=== PATIENT | female | born 1990 | race Caucasian/White ===

== ENCOUNTER 2020-06-05 03:31 | Inpatient (IN) ==
[2020-06-05] MEDS ORDERED: BUTORPHANOL 2 MG/ML VIAL IV PRN (05:32)
[2020-06-05] MEDS ORDERED: ONDANSETRON 4 MG/2 ML VIAL IV PRN (05:32)
[2020-06-05] MEDS ORDERED: AMPICILLIN INJ 2,000 MG in SODIUM CHLORIDE 0.9% 100 ML IV ONE (05:55)
[2020-06-05] MEDS ORDERED: LACTATED RINGERS 1,000 ML IV SCH ×2 (06:00→07:00)
[2020-06-05 06:28] LABS: Basophils # 0.1 10*3/uL (0.0-0.2); Basophils % 0.2 % (0.0-0.8); Eosinophils # 0.1 10*3/uL (0.0-0.87); Eosinophils % 0.5 % (0.00-10.9); Hematocrit 33.2 VOL% (35.7-47.0); Hemoglobin 10.9 GM/DL (12.0-16.0); Immature Granulocytes % 2.1 %; Immature Granulocytes Absolute 0.46 #; Lymphocytes # 4.1 10*3/uL (1.4-4.0); Lymphocytes % 19.1 % (21.3-54.2); Mean Corpuscular HGB Conc 32.8 GM/DL (32-36); Mean Platelet Volume 10.3 FL (9.6-12.0); Monocytes % 7.4 % (1.7-12.7); NRBC # 0.03 10*3/uL; Neutrophils % 70.7 % (38.7-73.9); Platelet Count 332 T/CUMM (130-400); Red Blood Count 3.61 MC/CUMM (3.8-5.5); White Blood Count 21.5 T/CUMM (4-12)
[2020-06-05] MEDS ORDERED: FAMOTIDINE 20 MG/2 ML VIAL IV ONE ×2 (06:33→15:16)
[2020-06-05] MEDS ORDERED: CITRIC ACID/SODIUM CITRATE 30 ML UDCUP PO ONE (06:33)
[2020-06-05] MEDS ORDERED: LACTATED RINGERS 1,000 ML IV ONE (06:33)
[2020-06-05] MEDS ORDERED: ePHEDrine 50 MG/ML VIAL IV PRN (06:33)
[2020-06-05] MEDS ORDERED: diphenhydrAMINE 50 MG/1 ML VIAL IV PRN (06:33)
[2020-06-05] MEDS ORDERED: NALOXONE 0.4 MG/ML VIAL IV PRN (06:33)
[2020-06-05 06:50] LABS: Alanine Aminotransferase 24 U/L (13-56); Albumin 2.9 G/DL (3.4-5.0); Alkaline Phosphatase 130 U/L (45-117); Aspartate Amino Transferase 19 U/L (0-37); Bilirubin,Total < 0.39 MG/DL (0.2-1.0); Blood Urea Nitrogen 9 MG/DL (7-18); Calcium 8.7 MG/DL (8.5-10.1); Estimated Glom Filtration Rate 136 ML/MIN; Glucose 86 MG/DL (74-106); Osmolality,Calculated 265.2 MOS/KG (273-304); Total Protein 7.1 G/DL (6.4-8.3)
[2020-06-05 07:00] LABS: Band Neutrophils 1 % (0-10); Eosinophils 1 % (0-10); Lymphocytes 22 % (20-55); Platelet Estimate Normal; Segmented Neutrophils 67 % (50-85); Total Cells Counted 100
[2020-06-05 07:01] LABS: Anisocytosis 2+
[2020-06-05] MEDS: OXYTOCIN/LR 20 UNIT/1,000 ML BAG IV SCH (07:36)
[2020-06-05] MEDS: LACTATED RINGERS 1,000 ML IV SCH ×2 (09:33→17:35)
[2020-06-05] MEDS: AMPICILLIN INJ 1,000 MG in SODIUM CHLORIDE 0.9% 100 ML IV SCH ×5 (10:01→22:38)
[2020-06-05] MEDS ORDERED: CITRIC ACID/SODIUM CITRATE 30 ML UDCUP ONE (15:15)
[2020-06-05] MEDS: fentaNYL 2 MCG/ROPIV 0.2% EPID 100 ML EPIDURAL SCH (16:02)
[2020-06-05 19:37] LABS: Apearance,Urine CLEAR (Clear); Bacteria,Urine Occasional /HPF (Few); Bilirubin,Urine Negative (Negative); Blood, Urine Small mg/dL (Negative); Glucose,Urine (UA) Negative (Negative); Ketones,Urine 5 mg/dL (Negative); Nitrite,Urine Negative (Negative); Protein,Urine Negative; RBC,Urine 1 /HPF (0-4); Squamous Epithelial Cell,Urine Occasional /HPF (0-10); Urine Color Yellow (Yellow); Urine Specific Gravity 1.009 (1.001-1.035); Urine Urobilinogen < 2.0 EU/DL (0.2-1.0); WBC,Urine <1 /HPF (0-6)
[2020-06-06] MEDS: fentaNYL 2 MCG/ROPIV 0.2% EPID 100 ML EPIDURAL SCH (00:49)
[2020-06-06] MEDS: AMPICILLIN INJ 1,000 MG in SODIUM CHLORIDE 0.9% 100 ML IV SCH ×2 (02:30→06:03)
[2020-06-06] MEDS: OXYTOCIN/LR 20 UNIT/1,000 ML BAG IV SCH (02:34)
[2020-06-06] MEDS: LACTATED RINGERS 1,000 ML IV SCH (05:00)
[2020-06-06] MEDS ORDERED: miSOPROStoL 200 MCG TABLET ONE (08:03)
[2020-06-06] MEDS ORDERED: OXYTOCIN/LR 20 UNIT/1,000 ML BAG IV ONE ×2 (08:04→10:06)
[2020-06-06] MEDS ORDERED: TRANEXAMIC ACID 1,000 MG/10 ML VIAL ONE (08:04)
[2020-06-06] MEDS ORDERED: METHYLERGONOVINE 0.2 MG/1 ML AMP ONE (08:05)
[2020-06-06] MEDS ORDERED: CARBOPROST TROMETHAMINE 250 MCG/ML AMP IM ONE (08:05)
[2020-06-06 09:41] LABS: Cord Venous Blood HCO3 21.7 MMOL/L; Cord Venous Blood PCO2 39.1 MMHG; Cord Venous Blood PO2 26.1 MMHG
[2020-06-06] MEDS ORDERED: ONDANSETRON 4 MG/2 ML VIAL IV PRN (10:06)
[2020-06-06] MEDS ORDERED: DIPH/TET/ACEL PERT BOOSTER VACCINE 0.5 ML VIAL IM ONE (10:06)
[2020-06-06] MEDS ORDERED: MEASLES/MUMPS/RUBELLA VACCINE 0.5 ML VIAL SUBCUT ONE (10:06)
[2020-06-06] MEDS ORDERED: HYDROCORTISONE 2.5% RECTAL CREAM 30 GM TUBE TOP PRN (10:06)
[2020-06-06] MEDS ORDERED: BISACODYL 10 MG SUPP RECTAL PRN (10:06)
[2020-06-06] MEDS ORDERED: oxyCODONE/ACETAMINOPHEN 5-325 MG TABLET PO PRN ×2 (10:06)
[2020-06-06] MEDS ORDERED: BENZOCAINE 20%/MENTHOL 0.5% SPRAY 56 GM CAN TOP PRN (10:06)
[2020-06-06] MEDS ORDERED: LANOLIN 50% CREAM 0.3 OZ TUBE TOP PRN (10:06)
[2020-06-06] MEDS ORDERED: WITCH HAZEL PADS 100/JAR TOP PRN (10:06)
[2020-06-06] MEDS ORDERED: ACETAMINOPHEN 325 MG TABLET PO PRN (10:06)
[2020-06-06] MEDS ORDERED: IBUPROFEN 800 MG TABLET PO ONE (10:15)
[2020-06-06] MEDS: DOCUSATE SODIUM 100 MG CAPSULE PO SCH (20:42)
[2020-06-07] MEDS: IBUPROFEN 800 MG TABLET PO PRN ×2 (00:20→20:20)
[2020-06-07 05:59] LABS: Basophils # 0.1 10*3/uL (0.0-0.2); Basophils % 0.3 % (0.0-0.8); Eosinophils # 0.4 10*3/uL (0.0-0.87); Eosinophils % 1.8 % (0.00-10.9); Hematocrit 33.5 VOL% (35.7-47.0); Hemoglobin 11.2 GM/DL (12.0-16.0); Immature Granulocytes % 1.2 %; Immature Granulocytes Absolute 0.25 #; Lymphocytes # 3.8 10*3/uL (1.4-4.0); Lymphocytes % 17.8 % (21.3-54.2); Mean Corpuscular HGB Conc 33.4 GM/DL (32-36); Mean Corpuscular Volume 89.3 FL (87-102); Mean Platelet Volume 9.6 FL (9.6-12.0); Monocytes % 8.8 % (1.7-12.7); Neutrophils % 70.1 % (38.7-73.9); Platelet Count 259 T/CUMM (130-400); Red Blood Count 3.75 MC/CUMM (3.8-5.5); Red Cell Distribution Width 13.1 % (9.3-17.3); White Blood Count 21.5 T/CUMM (4-12)
[2020-06-07 06:19] LABS: Hypochromasia Slight; Microcytosis Slight; Platelet Estimate Adequate
[2020-06-07] MEDS: DOCUSATE SODIUM 100 MG CAPSULE PO SCH ×2 (09:39→20:20)
[2020-06-07] MEDS ORDERED: BENZOCAINE/MENTHOL LOZENGE 18/BOX PO PRN (14:30)
[2020-06-08 07:53] VITALS: BP 106/64
[2020-06-08] MEDS: DOCUSATE SODIUM 100 MG CAPSULE PO SCH (09:19)
== END 2020-06-08 13:05 | disposition home or self-care (01) | DRG 806 ==
LOC: N.LDOUT 03:31 → N.LD 03:33 → N.OB 06-06 12:53 → UNDODISIN 06-08 10:35
PROVIDERS: ADMIT Obstetrics & Gynecology; ATTEND Obstetrics & Gynecology